=== PATIENT | female | born 1980 | race Caucasian/White ===

== ENCOUNTER 2017-05-04 16:14 | Outpatient (CLI) | payer MEDICAID ==
[2017-05-04 19:26] LABS: ADD MAN DIFF? NO
[2017-05-04 19:34] LABS: WHITE BLOOD COUNT 10.5 10^3/ul (4.8-10.8)
[2017-05-04 19:34] LABS: ABNORMAL IP MESSAGE 1; BASOPHILS % 0.4 % (0.0-2.0); EOSINOPHILS # 0.1 10^3/ul (0.0-0.5); HEMATOCRIT 35.8 % (37.0-47.0); HEMOGLOBIN 11.8 g/dl (12.0-16.0); LYMPHOCYTES # 3.1 10^3/ul (0.8-2.9); LYMPHOCYTES % 29.7 % (15.0-51.0); MEAN CORPUSCULAR HEMOGLOBIN 28.7 pg (29.0-33.0); MEAN CORPUSCULAR VOLUME 87.1 fl (82.0-101.0); MEAN PLATELET VOLUME 13.6 fl (7.4-10.4); MONOCYTE # 0.8 10^3/ul (0.3-0.9); MONOCYTES % 7.8 % (0.0-11.0); NEUTROPHIL # 6.4 10^3/ul (1.6-7.5); NEUTROPHILS % 60.4 % (39.0-77.0); PLATELET COUNT 132 10^3/UL (140-415); RED BLOOD COUNT 4.11 10^6/ul (4.20-5.40); RED CELL DISTRIBUTION WIDTH 14.4 % (11.5-14.5)
[2017-05-04 19:43] LABS: POSITIVE DIFF @See below
[2017-05-04 20:20] LABS: HEPATITIS B SURFACE ANTIGEN NEGATIVE (NEGATIVE)
[2017-05-04 20:22] LABS: ADD UMIC YES; UR ASCORBIC ACID NEGATIVE (NEGATIVE); UR BILIRUBIN (Dip) NEGATIVE (NEGATIVE); UR BLOOD (Dip) 1+ mg/dL (NEGATIVE); UR CLARITY SLIGHTLY CLOUDY (CLEAR); UR COLOR YELLOW (YELLOW); UR GLUCOSE (Dip) NEGATIVE (NEGATIVE); UR KETONES (Dip) NEGATIVE (NEGATIVE); UR LEUKOCYTE ESTERASE (Dip) 3+ Leu/ul (NEGATIVE); UR MUCUS FEW /HPF (NONE SEEN); UR NITRITE (Dip) NEGATIVE (NEGATIVE); UR RBC 14 /HPF (0-5); UR SPECIFIC GRAVITY (Dip) 1.026 (1.003-1.030); UR SQUAMOUS EPITHELIAL CELL FEW /HPF (FEW); UR TOTAL PROTEIN (Dip) 1+ mg/dl (NEGATIVE); UR UROBILINOGEN (Dip) 1+ mg/dL (NEGATIVE); UR WBC 158 /HPF (0-5)
[2017-05-04 20:26] LABS: AMPHETAMINE/METHAMPHETAMINE Negative (NEGATIVE); BARBITURATES Negative (NEGATIVE); BENZODIAZEPINES Negative (NEGATIVE); CANNABINOIDS Negative (NEGATIVE); COCAINE Negative (NEGATIVE); OPIATES Negative (NEGATIVE)
[2017-05-04 20:29] LABS: ANISOCYTOSIS 1+ (0-0); EOSINOPHILS % (M) 2 % (0-7); LYMPHOCYTES #M 1.6 10^3/ul (0.8-2.9); LYMPHOCYTES % (M) 16 % (15-51); MICROCYTOSIS 1+ (0-0); MONOCYTE #M 0.5 10^3/ul (0.3-0.9); MONOCYTES % (M) 5 % (0-11); REACTIVE LYMPHOCYTES #M 1.6 10^3/ul (0.0-0.0); REACTIVE LYMPHOCYTES% (M) 16 % (0-0); SEGMENTED NEUTROPHILS (M) % 61 % (39-77); SMUDGE%M 4 % (0-0)
[2017-05-04 20:31] LABS: HIV 1&2 ANTIBODY NEGATIVE (NEGATIVE)
[2017-05-04] MEDS: SOD CHLORIDE 0.9% 1,000 ML IV (21:06)
[2017-05-04] MEDS: CEFTRIAXONE 1 GM/50 ML (PMX) 50 ML IVPB (21:28)
[2017-05-04 21:56] LABS: HEMOGLOBIN A1C 5.6 % (0-5.9)
[2017-05-04] MEDS: ACETAMINOPHEN 500 MG TAB PO (22:41)
[2017-05-04] MEDS ORDERED: DIPHTH/TET/ACEL PERTUSS (ADULT) 0.5 ML VIAL IM* (23:00)
[2017-05-04] MEDS: DIPHTH/TET/ACEL PERTUSS (ADULT) 0.5 ML VIAL IM* (23:29)
[2017-05-05 22:31] LABS: RAPID PLASMA REAGIN NONREACTIVE (NR)
[2017-05-06 13:42] LABS: RUBELLA ANTIBODY - IGM <20.00 AU/mL
== END 2017-05-04 23:35 | disposition home or self-care (01) ==
LOC: OBT 16:14 → L-D 16:16 → OBT 23:35
DX: O62.9 Abnormality of forces of labor, unspecified (principal); Z3A.38 38 weeks gestation of pregnancy
CPT/HCPCS: 36415; 76815; 76818; 80307; 81001; 82962; 83036; 85025; 86592; 86703; 86762; 86900; 86901; 87070; 87086; 87340; 87591; 90715; 96360; 96361; 96365; 96372

== ENCOUNTER 2017-05-07 17:02 | Outpatient (CLI) | payer MEDICAID | END 2017-05-07 19:10 | disposition home or self-care (01) | LOC: OBT 17:02 → L-D 17:03 → OBT 19:10 | DX: O26.893 Other specified pregnancy related conditions, third trimester (principal); O09.523 Supervision of elderly multigravida, third trimester; Z3A.39 39 weeks gestation of pregnancy; Z87.440 Personal history of urinary (tract) infections | CPT/HCPCS: 76818 ==

== ENCOUNTER 2017-08-06 06:51 | Day surgery (SDC) | payer MEDICAID ==
[2017-08-06 07:34] LABS: ADD MAN DIFF? NO
[2017-08-06 07:48] LABS: WHITE BLOOD COUNT 8.2 10^3/ul (4.8-10.8)
[2017-08-06 07:48] LABS: BASOPHILS % 0.4 % (0.0-2.0); EOSINOPHILS # 0.1 10^3/ul (0.0-0.5); EOSINOPHILS % 1.3 % (0.0-7.0); HEMATOCRIT 35.6 % (37.0-47.0); HEMOGLOBIN 11.6 g/dl (12.0-16.0); LYMPHOCYTES # 2.4 10^3/ul (0.8-2.9); LYMPHOCYTES % 28.8 % (15.0-51.0); MEAN CORPUSCULAR HEMOGLOBIN 28.9 pg (29.0-33.0); MEAN CORPUSCULAR HGB CONC 32.6 g/dl (32.0-37.0); MEAN CORPUSCULAR VOLUME 88.6 fl (82.0-101.0); MEAN PLATELET VOLUME 11.5 fl (7.4-10.4); MONOCYTE # 0.5 10^3/ul (0.3-0.9); MONOCYTES % 6.6 % (0.0-11.0); NEUTROPHIL # 5.2 10^3/ul (1.6-7.5); NEUTROPHILS % 62.7 % (39.0-77.0); PLATELET COUNT 177 10^3/UL (140-415); RED BLOOD COUNT 4.02 10^6/ul (4.20-5.40); RED CELL DISTRIBUTION WIDTH 14.8 % (11.5-14.5)
[2017-08-06] MEDS ORDERED: PROPOFOL 20 ML (08:10)
[2017-08-06] MEDS ORDERED: SUCCINYLCHOLINE CHLORIDE 100 MG/5 ML SYG IV (08:10)
[2017-08-06] MEDS ORDERED: ROCURONIUM 50 MG INJ (08:10)
[2017-08-06] MEDS ORDERED: MIDAZOLAM 1 MG/ML 2 ML INJ (08:10)
[2017-08-06] MEDS ORDERED: LIDOCAINE 2% (SDV) 5 ML INJ (08:10)
[2017-08-06] MEDS ORDERED: CEFAZOLIN 1 GM INJ (08:29)
[2017-08-06] MEDS ORDERED: HYDROmorphONE (0.2 MG/ML) 10ML SYG IV ×5 (08:30→10:30)
[2017-08-06] MEDS ORDERED: PROCHLORPERAZINE 10 MG INJ IV ×2 (08:30→10:30)
[2017-08-06] MEDS ORDERED: OXYCODONE/ACETAMINOPHEN (5/325) TAB PO ×2 (08:30→10:30)
[2017-08-06] MEDS ORDERED: DIPHENHYDRAMINE 50 MG INJ IV ×2 (08:30→10:30)
[2017-08-06] MEDS ORDERED: FENTAnyl 50 MCG/ML VIAL IV ×3 (08:30→10:30)
[2017-08-06] MEDS ORDERED: ONDANSETRON 4 MG INJ IV ×2 (08:30→10:30)
[2017-08-06] MEDS ORDERED: DEXAMETHASONE 4 MG/ML 1 ML INJ (08:37)
[2017-08-06] MEDS ORDERED: ONDANSETRON 4 MG INJ (08:37)
[2017-08-06] MEDS: BUPIVACAINE 0.25% (MPF) 30 ML INJ (09:00)
[2017-08-06] MEDS ORDERED: FAMOTIDINE 20 MG INJ (09:34)
[2017-08-06] MEDS ORDERED: KETOROLAC 30 MG INJ (09:55)
[2017-08-06] MEDS ORDERED: FENTAnyl 50 MCG/ML VIAL (09:58)
[2017-08-06] MEDS ORDERED: KETOROLAC 15 MG INJ IV (10:30)
[2017-08-06] MEDS ORDERED: MEPERIDINE 25 MG INJ IV (10:30)
[2017-08-06] MEDS: HYDROmorphONE (0.2 MG/ML) 10ML SYG IV ×3 (10:39→11:06)
[2017-08-06] MEDS: MEPERIDINE 25 MG INJ IV (11:10)
[2017-08-06] MEDS: FENTAnyl 50 MCG/ML VIAL IV (11:27)
[2017-08-06] MEDS: HYDROCODONE/APAP (5/325) TAB PO (18:14)
== END 2017-08-06 22:10 | disposition home or self-care (01) ==
LOC: SDS 06:51 → MS1 12:30 → SDS 22:10
DX: Z30.2 Encounter for sterilization (principal); N83.8 Other noninflammatory disorders of ovary, fallopian tube and broad ligament
CPT/HCPCS: 58661; 84702; 85025; 88302